=== PATIENT | female | born 1985 | race Caucasian/White ===

== ENCOUNTER 2024-02-09 11:03 | Emergency (ER) | payer BC, SELFPAY ==
[2024-02-09 11:13] VITALS: BP 181/101
[2024-02-09 11:31] LABS: % Basophils 0.6 % (0-2); % Eosinophils 2.5 % (0-6); % Immature Granulocytes 0.1 % (0-0.5); % Monocytes 8.2 % (1.7-9.3); % Neutrophils 52.6 % (42.2-75.2); Absolute Basophils 0.1 10^3/uL (0-0.2); Absolute Eosinophils 0.2 10^3/uL (0-0.7); Absolute Lymphocytes 2.8 10^3/uL (1.2-3.4); Absolute Monocytes 0.6 10^3/uL (0.1-0.6); Absolute Neutrophils 4.1 10^3/uL (1.4-6.5); Hematocrit 34.5 % (37.0-47.0); Hemoglobin 11.5 g/dL (12.0-16.0); Mean Corp Hgb Conc. 33.3 g/dL (33.0-37.0); Mean Corpuscular Hgb 25.6 pg (27.0-31.0); Mean Corpuscular Volume 76.8 fL (81.0-99.0); Mean Platelet Volume 9.8 fL (7.4-10.4); Nucleated Red Blood Cells % 0 %; Platelet Count 309 10^3/uL (130-400); Red Blood Cell Count 4.49 10^6/uL (4.20-5.40); Red Cell Dist. Width 14.2 % (11.5-14.5); White Blood Cell Count 7.7 10^3/uL (4.8-10.8)
[2024-02-09 11:37] VITALS: BP 133/98
[2024-02-09 11:50] LABS: HCG, Serum Qualitative Screen Negative
[2024-02-09 11:54] LABS: ALT (SGPT) 13 U/L (0-35); AST (SGOT) 25 U/L (14-36); Albumin 4.5 g/dl (3.5-5.0); Alkaline Phosphatase 56 U/L (38-126); Blood Urea Nitrogen 11 mg/dl (7-17); Calcium 9.5 mg/dl (8.4-10.2); Carbon Dioxide 24 mmol/L (22-30); Chloride 105 mmol/L (98-107); Glucose 100 mg/dl (70-99); Potassium 4.5 mmol/L (3.5-5.1); Sodium 137 mmol/L (135-145); Total Bilirubin 1.3 mg/dl (0.2-1.3); Total Protein 7.4 g/dl (6.3-8.2); eGFR > 60.00
[2024-02-09 12:00] VITALS: BP 127/90
[2024-02-09 13:00] VITALS: BP 125/78
--- NOTE | 2024-02-09 13:22 | ED.GENMED ---
History of Present Illness
General
Chief Complaint: Breathing Problem
Source: patient
Exam Limitations: none
Time Seen by Provider: 02/09/24 12:07
Nursing documentation reviewed up to this point in time: agreed with
History of Present Illness
History of Present Illness:
38-year-old female presenting to the emergency department today for concerns of rapid heart rate nausea shortness of breath over the past 2 days. Initial symptoms started yesterday morning at she noticed when she woke up from sleep lasted roughly
10 hours continuous palpitations nausea and shortness of breath. Denies similar symptoms in the past. Denies any known medical illness or lung issues.
Review of Systems
Review of Systems
Allergies reviewed?: Yes
All Other Systems: ROS reviewed and negative except as documented in HPI and ROS
Phy Exam
Physical Exam
Physical Exam:
GENERAL: Alert , in no apparent distress
EYE: pupils equal and reactive
NECK: Supple, no significant adenopathy.
ENT: o/p clr, mmm.
CARDIAC: Regular rate and rhythm .
LUNGS: Clear breath sounds bilaterally, no acute respiratory distress, no wheezes/rales/rhonchi
ABDOMEN: Soft, without focal tenderness, no r/g, no cvat
NEUROLOGICAL: Alert and oriented, no focal neuro deficits
SKIN: Warm and dry, skin intact.
MUSCULOSKELETAL: No edema, well perfused.
PSYCH: Normal and appropriate interaction.
Course
Orders/Labs/Results
Orders:
Orders
02/09/24 11:16
Electrocardiogram (*1) Urgent
Reason for Study: Shortness of Breath
EKG- Treatment ONCE
Test Result ONCE
02/09/24 11:22
Complete Blood Count/With Diff Urgent
Comprehensive Metabolic Panel Urgent
HCG, Serum Qualitative Screen Urgent
02/09/24 13:11
Chest [CR Chest - 2 Views ] Urgent
Comment:
Reason For Exam: cp
02/09/24 13:17
Troponin I Urgent
Abnormal Lab Results
02/09/24
11:22
Hgb 11.5 L g/dL
(12.0-16.0)
Hct 34.5 L %
(37.0-47.0)
MCV 76.8 L fL
(81.0-99.0)
MCH 25.6 L pg
(27.0-31.0)
Glucose 100 H mg/dl
(70-99)
02/09/24 11:22
02/09/24 11:22
Vital Signs
Initial and Last Documented VS:
Initial Vital Signs
Temp Pulse Resp BP Pulse Ox
97.8 F 86 18 181/101 99
02/09/24 11:13 02/09/24 11:13 02/09/24 11:13 02/09/24 11:13 02/09/24 11:13
Last Documented Vital Signs
Temp Pulse Resp BP Pulse Ox
97.8 F 75 16 125/78 98
02/09/24 11:13 02/09/24 13:45 02/09/24 13:45 02/09/24 13:00 02/09/24 13:45
MDM/Problems Addressed
MDM/Problems Addressed:
28-year-old female presenting to the emergency department today with concerns of rapid heart rate nausea and shortness of breath over the past 2 days symptoms more severe this morning improving here. Initial blood pressure elevated but normal after
reassessment. Heart rate in the 80s. No risk factors for PE. Patient denies any recent trauma surgery or immobilization or estrogen product usage or history of blood clots. No leg swelling. Patient is PERC negative. Labs were obtained and
normal EKG is normal as well no signs of arrhythmia no ischemic changes. Normal heart and lung examination. Chest x-ray normal patient low risk for any life-threatening etiology symptoms not consistent with pulmonary embolus, PERC negative
symptoms not consistent with dissection and normal chest x-ray no evidence of ACS stable for outpatient management given information for cardiology follow-up. Return precautions given.
*Critical Care Note
Total Time (30-74mins, 75-104mins- exclusive of procedures): Not Applicable
ED Attending Note
-
Portions of this chart may have been created with voice recognition software.� Occasional wrong word or��sound alike� substitutions may have occurred due to the inherent limitations of voice recognition software.
Discharge Plan
Departure
Patient Disposition: Home (Routine Discharge)
Date of Disposition: 02/09/24
Time of Disposition: 14:51
Patient with high blood pressure during this ER visit?: No
Condition: Good
Covid-19: Not Applicable
Discharge Problem:
Palpitations, Breathlessness
Instructions: Chest Pain CBC Follow Up
Referrals:
Soila Kumar PA-C [Family Provider] -
Activity Restrictions/Additional Instructions:
You came to the emergency department today with concerns of rapid heart rate nausea shortness of breath over the past 2 days. Here you had a reassuring assessment. Please follow closely with cardiology and primary care doctor. Return to the
emergency department for any worsening, new or concerning symptoms.
Interventions
Interventions:
*Risk Screen - Suicide Last Done: 02/09/24 11:13
*General Assessment Last Done: 02/09/24 11:13
*Neglect/Abuse Screening Last Done: 02/09/24 11:13
ED- Cardiac Assessment Last Done: 02/09/24 11:40
ED- Pulmonary Assessment Last Done: 02/09/24 11:40
Discharge Date and Time
Print Language: [place]
[2024-02-09 14:18] LABS: Troponin I < 0.012 ng/ml
== END 2024-02-09 15:04 | disposition home or self-care (01) ==
LOC: EMR 11:03
PROVIDERS: Emergency Medicine; Physician Assistant; EMERGENCY PHYSICIAN Emergency Medicine; FAMILY PHYSICIAN Physician Assistant Medical
DX: R00.2 Palpitations (principal); R06.02 Shortness of breath; R11.0 Nausea
CPT/HCPCS: 99283; 71046; 80053; 84484; 84703; 85025; 93005